=== PATIENT | male | born 1995 | race Caucasian/White ===

== ENCOUNTER 2019-05-24 20:17 | Inpatient (IN) ==
[2019-05-24] MEDS ORDERED: METOPROLOL TARTRATE 5 MG/5 ML VIAL IV STA (20:34)
[2019-05-24 21:03] LABS: Basophils # 0.1 10*3/uL (0.0-0.2); Basophils % 0.6 % (0.0-0.8); Eosinophils # 0.2 10*3/uL (0.0-0.87); Eosinophils % 1.7 % (0.00-10.9); Hematocrit 44.4 VOL% (42.0-52.0); Immature Granulocytes % 0.5 %; Immature Granulocytes Absolute 0.05 #; Lymphocytes # 3.5 10*3/uL (1.4-4.0); Lymphocytes % 32.2 % (21.2-54.2); Mean Corpuscular HGB Conc 33.8 GM/DL (32-36); Mean Corpuscular Volume 89.2 FL (87-102); Mean Platelet Volume 9.9 FL (9.6-12.0); Monocytes % 6.5 % (1.7-12.7); Neutrophils % 58.5 % (38.7-73.9); Platelet Count 221 T/CUMM (130-400); Red Blood Count 4.98 MC/CUMM (3.8-5.5); Red Cell Distribution Width 11.8 % (9.3-17.3); White Blood Count 10.8 T/CUMM (4-12)
[2019-05-24 21:23] LABS: Alanine Aminotransferase 98 U/L (16-61); Albumin 4.5 G/DL (3.4-5.0); Alkaline Phosphatase 47 U/L (45-117); Aspartate Amino Transferase 40 U/L (0-37); Blood Urea Nitrogen 19 MG/DL (7-18); Calcium 9.2 MG/DL (8.5-10.1); Estimated Glom Filtration Rate 110 ML/MIN; Glucose 115 MG/DL (74-106); Osmolality,Calculated 275.8 MOS/KG (273-304); Total Protein 7.9 G/DL (6.4-8.3); Troponin I < 0.015 NG/ML (0.00-0.045)
[2019-05-24] MEDS ORDERED: hydrALAZINE 20 MG/1 ML VIAL IV STA (21:28)
[2019-05-24] MEDS ORDERED: ONDANSETRON 4 MG/2 ML VIAL IV PRN (21:35)
[2019-05-24] MEDS ORDERED: ACETAMINOPHEN 325 MG TABLET PO PRN (21:35)
[2019-05-24] MEDS ORDERED: hydrALAZINE 20 MG/1 ML VIAL IV PRN (21:35)
[2019-05-24] MEDS ORDERED: CALCIUM CARBONATE CHEW 500 MG TABLET PO PRN (21:35)
[2019-05-24 21:59] LABS: Barbiturates Screen,Urine Negative (Negative); Benzodiazepines Screen,Urine Negative (Negative); Cannabinoid Screen,Urine Negative (Negative); Opiate Screen,Urine Negative (Negative); Phencyclidine Screen,Urine Negative (Negative)
[2019-05-24] MEDS: LORazepam 1 MG TABLET PO PRN (22:17)
[2019-05-25] MEDS: LORazepam 1 MG TABLET PO PRN ×2 (11:19→20:09)
[2019-05-25] MEDS ORDERED: amLODIPine 5 MG TABLET PO ONE (14:37)
[2019-05-25] MEDS ORDERED: LORazepam 2 MG/1 ML VIAL IV ONE ×2 (22:00→23:30)
[2019-05-26 04:09] LABS: Basophils # 0.1 10*3/uL (0.0-0.2); Basophils % 0.5 % (0.0-0.8); Eosinophils # 0.1 10*3/uL (0.0-0.87); Hematocrit 44.4 VOL% (42.0-52.0); Hemoglobin 15.2 GM/DL (14.0-18.0); Immature Granulocytes % 0.3 %; Immature Granulocytes Absolute 0.03 #; Lymphocytes # 2.8 10*3/uL (1.4-4.0); Lymphocytes % 27.8 % (21.2-54.2); Mean Corpuscular HGB Conc 34.2 GM/DL (32-36); Mean Platelet Volume 10.2 FL (9.6-12.0); Monocytes % 9.2 % (1.7-12.7); Neutrophils % 61.2 % (38.7-73.9); Platelet Count 225 T/CUMM (130-400); Red Blood Count 5.16 MC/CUMM (3.8-5.5); Red Cell Distribution Width 11.9 % (9.3-17.3)
[2019-05-26 04:48] LABS: Albumin 4.2 G/DL (3.4-5.0); Bilirubin,Direct 0.18 MG/DL (0.0-0.20); Bilirubin,Indirect 2.1 MG/DL (0.0-1.0); Bilirubin,Total 2.3 MG/DL (0.2-1.0); Calcium 9.6 MG/DL (8.5-10.1); Osmolality,Calculated 274.8 MOS/KG (273-304); Total Protein 7.7 G/DL (6.4-8.3)
[2019-05-26] MEDS ORDERED: LORazepam 2 MG/1 ML VIAL IV ONE (04:52)
[2019-05-26] MEDS: POTASSIUM CHLORIDE 20 MEQ TABLET PO PRN ×4 (08:27→21:56)
[2019-05-26] MEDS ORDERED: amLODIPine 5 MG TABLET PO SCH (09:00)
[2019-05-26] MEDS: chlordiazePOXIDE 25 MG CAPSULE PO SCH ×3 (10:33→21:56)
[2019-05-26] MEDS ORDERED: amLODIPine 5 MG TABLET PO ONE (14:00)
[2019-05-26] MEDS: BUPRENORPHINE SL TAB 2 MG TABLET SL SCH ×2 (15:33→23:36)
[2019-05-27] MEDS: chlordiazePOXIDE 25 MG CAPSULE PO SCH ×3 (04:31→17:33)
[2019-05-27 06:21] LABS: Albumin 4.1 G/DL (3.4-5.0); Bilirubin,Direct 0.26 MG/DL (0.0-0.20); Bilirubin,Indirect 2.1 MG/DL (0.0-1.0); Bilirubin,Total 2.4 MG/DL (0.2-1.0); Total Protein 7.6 G/DL (6.4-8.3)
[2019-05-27] MEDS: BUPRENORPHINE SL TAB 2 MG TABLET SL SCH ×3 (06:33→23:30)
[2019-05-27] MEDS: amLODIPine 10 MG TABLET PO SCH (09:20)
[2019-05-28] MEDS: chlordiazePOXIDE 25 MG CAPSULE PO SCH ×3 (02:23→18:43)
[2019-05-28] MEDS: BUPRENORPHINE SL TAB 2 MG TABLET SL SCH ×2 (06:41→16:21)
[2019-05-28] MEDS: amLODIPine 10 MG TABLET PO SCH (09:04)
[2019-05-28 13:02] LABS: Albumin 4.1 G/DL (3.4-5.0); Bilirubin,Direct 0.18 MG/DL (0.0-0.20); Bilirubin,Total 1.2 MG/DL (0.2-1.0); Total Protein 7.4 G/DL (6.4-8.3)
[2019-05-29] MEDS: chlordiazePOXIDE 25 MG CAPSULE PO SCH (02:34)
[2019-05-29] MEDS: BUPRENORPHINE SL TAB 2 MG TABLET SL SCH (02:34)
[2019-05-29 06:19] LABS: Basophils # 0.1 10*3/uL (0.0-0.2); Basophils % 0.6 % (0.0-0.8); Eosinophils # 0.2 10*3/uL (0.0-0.87); Eosinophils % 2.8 % (0.00-10.9); Hematocrit 42.4 VOL% (42.0-52.0); Hemoglobin 14.6 GM/DL (14.0-18.0); Immature Granulocytes % 0.4 %; Immature Granulocytes Absolute 0.03 #; Lymphocytes # 4.2 10*3/uL (1.4-4.0); Lymphocytes % 53.7 % (21.2-54.2); Mean Corpuscular HGB Conc 34.4 GM/DL (32-36); Mean Corpuscular Volume 87.6 FL (87-102); Mean Platelet Volume 10.1 FL (9.6-12.0); Monocytes % 9.5 % (1.7-12.7); Platelet Count 232 T/CUMM (130-400); Red Blood Count 4.84 MC/CUMM (3.8-5.5); Red Cell Distribution Width 11.8 % (9.3-17.3); White Blood Count 7.9 T/CUMM (4-12)
[2019-05-29 06:46] LABS: Atypical Lymphocytes Few; Eosinophils 1 % (0-10); Lymphocytes 61 % (20-55); Platelet Estimate Adequate; Segmented Neutrophils 33 % (50-85); Total Cells Counted 100
[2019-05-29 07:00] LABS: Calcium 8.8 MG/DL (8.5-10.1); Osmolality,Calculated 277.5 MOS/KG (273-304)
[2019-05-29] MEDS: amLODIPine 10 MG TABLET PO SCH (09:30)
[2019-05-29] MEDS: POTASSIUM CHLORIDE 20 MEQ TABLET PO PRN (17:28)
[2019-05-29] MEDS ORDERED: hydrOXYzine HCL 25 MG TABLET PO PRN (19:50)
[2019-05-30] MEDS: amLODIPine 10 MG TABLET PO SCH (08:41)
[2019-05-31] MEDS: amLODIPine 10 MG TABLET PO SCH (09:34)
[2019-05-31 10:39] VITALS: BP 128/77
== END 2019-05-31 13:44 | DRG 897 ==
LOC: N.ED 20:17 → N.EDINP 20:17 → N.5E 22:07 → SUATTDRO 05-26 09:44
PROVIDERS: ADMIT Internal Medicine; ATTEND Internal Medicine